=== PATIENT | female | born 1970 | race Caucasian/White ===

== ENCOUNTER → 2016-10-11 | Outpatient (CLI) | payer OTHER ==
--- NOTE | 2016-10-11 11:29 | KCIC ---
PROCEDURE MR of the left wrist HISTORY Left wrist pain after injury on October 01. Swelling. COMPARISON None FINDINGS Transverse fracture of the distal radius, along the growth plate scar. No gross displacement. Acute bone marrow contusion at the distal radius. No additional acute fractures are seen. Mild signal heterogeneity at the radial attachment of the triangular fibrocartilage, but the thin-section coronal slices demonstrate no evidence of an actual tear or rupture. Mild extensor carpi ulnaris tendinosis. No rupture. Mild adjacent fluid. Mild tendon sheath fluid identified at the 2nd, 3rd and 4th extensor compartments. Minimal fluid at the 5th extensor compartment. No evidence of scapholunate or lunotriquetral ligament tear. There is soft tissue edema/hemorrhage surrounding the wrist. This is greatest at the radial aspect. Small benign appearing lesion within the capitate bone. No aggressive bone destruction. Small distal radioulnar joint effusion. IMPRESSION 1. Nondisplaced transverse fracture across the distal radius. 2. Mild extensor carpi ulnaris tendinosis. 3. Mild fluid or tenosynovitis of multiple other extensor compartments. Electronically signed by: Yemi Chadwick MD (Oct 11, 2016 11:28:48)
== END | disposition home or self-care (01) ==
LOC: KCIC MRI 08:36
PROVIDERS: ATTEND Nurse Practitioner Family
DX: S52.592A Other fractures of lower end of left radius, initial encounter for closed fracture (principal); M65.832 Other synovitis and tenosynovitis, left forearm; X58.XXXA Exposure to other specified factors, initial encounter; Y93.89 Activity, other specified; Y92.89 Other specified places as the place of occurrence of the external cause; Y99.8 Other external cause status
CPT/HCPCS: 73221

== ENCOUNTER → 2017-11-29 | Outpatient (CLI) | payer OTHER | END | disposition home or self-care (01) | LOC: KCIC 14:07 | DX: R06.2 Wheezing (principal); Z12.31 Encounter for screening mammogram for malignant neoplasm of breast (principal) | CPT/HCPCS: 71046; 77067 ==

== ENCOUNTER → 2019-10-01 | Outpatient (CLI) | payer OTHER ==
--- NOTE | 2019-10-01 13:59 | KCIC ---
INDICATION: Osteoporosis screening. Postmenopausal evaluation with history of steroid medication use COMPARISON: None. TECHNIQUE: Bone densitometry was performed through the lumbar spine and left proximal femur. FINDINGS: Lumbar Spine: L1-4 BMD: 0.96 T-Score: -0.8 Femoral Neck: BMD: 0.79 T-Score: -1.2 IMPRESSION: 1. Lumbar spine falls within the lower limits of normal range. 2. Femoral neck falls within the osteopenic range. Electronically signed by: Ricardo Anders MD (10/01/2019 1:56 PM) [facility]
--- NOTE | 2019-10-01 14:44 | KCIC ---
BILATERAL SCREENING MAMMOGRAM History: Routine screening. Comparison: Bilateral mammogram 11/29/2017. Technique: Routine bilateral digital mammogram views were obtained. Findings: Breast Tissue Density A : The breasts are almost entirely fatty. There are no dominant masses, suspicious microcalcifications, or architectural distortion. IMPRESSION: No mammographic evidence of malignancy. Recommend routine screening. BI-RADS category 1: Negative. The images were reviewed with computer aided detection. Patient information is entered into the reminder system with a target due date for the next screening mammogram. Mammography is the most sensitive method for finding small breast cancers, but it does not detect them all and is not a substitute for careful clinical examination. A negative mammogram does not negate a clinically suspicious finding and should not result in delay in biopsying a clinically suspicious abnormality. "Our facility is accredited by the [employer] Mammography Program." Electronically signed by: Torsten Groves MD (10/01/2019 2:42 PM) [facility]
== END | disposition home or self-care (01) ==
LOC: KCIC DEXA 08:32
PROVIDERS: ATTEND Nurse Practitioner Family
DX: Z12.31 Encounter for screening mammogram for malignant neoplasm of breast (principal); Z13.820 Encounter for screening for osteoporosis; N64.89 Other specified disorders of breast; M85.88 Other specified disorders of bone density and structure, other site
CPT/HCPCS: 77067; 77080

== ENCOUNTER → 2020-06-29 | Outpatient (CLI) | payer OTHER ==
--- NOTE | 2020-06-29 12:05 | KCIC ---
MRI Lumbar Spine without contrast History: Low back pain, bilateral pain and numbness in extremities Technique: Multiplanar, multi sequential noncontrast MR imaging was performed of the lumbar spine. Comparison: None Findings: Lumbar vertebral body stature and AP alignment are maintained. There is mild L4-5 degenerative disc disease, very mild disc desiccation L3-4. There is minimal degenerative change associated with osteophytes anteriorly at L1-L2 through L3-4. Conus terminates at L1-L2. There is trace superior right L5 endplate edema likely reactive/degenerative in etiology. Appearance of some amorphous increased STIR signal of the visualized sacrum is favored to be artifactual given linear margin and not well-visualized on the T1 sequence. L1-L2: This level was not included on the axial images. Neural foramina and spinal canal are adequate. L2-L3: Spinal canal and neural foramina are adequate. There is minimal buckling of the ligamentum flavum and facet degenerative change. L3-L4: There is a negligible disc osteophyte complex. There is mild buckling of the ligamentum flavum. Spinal canal and neural foramina are adequate. L4-L5: There is posterior central protrusion about 1 to 2 mm AP. There is mild buckling of the ligamentum flavum and facet degenerative change. There is mild narrowing of the far lateral recesses bilaterally. There is mild narrowing of the inferior right neural foramen by disc osteophyte complex, left neural foramen adequate. L5-S1: There is minimal disc osteophyte complex. There is mild prominence of epidural fat in the lateral recesses bilaterally, preserved central subarachnoid space. There is mild facet degenerative change greater on the right. Neural foramina are overall adequate. Impression: 1. There is mild narrowing of the far lateral recesses bilaterally at L4-5, no significant lumbar spinal stenosis. There is mild L4-5 degenerative disc disease. There is mild narrowing of the right L4-5 neural foramen. Electronically signed by: Amrit Jane MD (06/29/2020 12:02 PM) [id number]
== END ==
LOC: KCIC MRI 10:21
PROVIDERS: ATTEND Family Medicine
DX: M51.16 Intervertebral disc disorders with radiculopathy, lumbar region (principal); M48.061 Spinal stenosis, lumbar region without neurogenic claudication; M25.78 Osteophyte, vertebrae
CPT/HCPCS: 72148

== ENCOUNTER → 2020-07-10 | Outpatient (CLI) | payer OTHER ==
[~2020-07-10] MED LIST: AMLO5TAB10 PO; CYCL5TAB PO; DIAZ2TAB PO; DULO60CA6 PO; GABA300C18 PO; MONT10TA49 PO; OMEP20CA16 PO; OXYC1TAB15 PO; TOPI100T8 PO; VALS80TA3 PO
== END | disposition home or self-care (01) ==
LOC: LAB 14:02
PROVIDERS: ATTEND Surgery
DX: Z01.812 Encounter for preprocedural laboratory examination (principal); Z20.828 Contact with and (suspected) exposure to other viral communicable diseases; K64.8 Other hemorrhoids; L73.2 Hidradenitis suppurativa
CPT/HCPCS: U0003-CS

== ENCOUNTER 2020-07-15 10:06 | Day surgery (SDC) | payer OTHER ==
[~2020-07-15] VITALS: Ht 157.5 cm; Wt 81.0 kg
[~2020-07-15 10:06] MED LIST changes: +ACETAMINOPHEN 500 MG TABLET PO PRN; +BUPIVACAINE MPF 0.5% 30 ML VIAL. ONE; +BUPIVACAINE-EPI 0.5%-1:200000 MPF 30 ML VIAL. INJ ONE; +DEXAMETHASONE SOD PHOS 4 MG/ML VIAL ONE; +EPINEPHrine VIAL 30 MG/30 ML VIAL ONE; +IV RINGERS,LACTATED 1000ML 1,000 ML IV SCH; +LIDOCAINE 2% PF 5 ML VIAL. ONE; +MIDAZOLAM HCL/PF 2 MG/2 ML VIAL. ONE; +ONDANSETRON PF 4 MG/2 ML VIAL. IV PRN; +ONDANSETRON PF 4 MG/2 ML VIAL. ONE; -OXYC1TAB15 PO; +PROCHLORPERAZINE 10 MG/2 ML VIAL. IV PRN; +PROPOFOL 10 MG/ML (20ML) VIAL. IV ONE; +fentaNYL PF VIAL 100 MCG/2 ML VIAL IV PRN; +fentaNYL PF VIAL 100 MCG/2 ML VIAL ONE
[2020-07-15] MEDS ORDERED: SCOPOLAMINE 1.5MG PATCH. TD SCH (11:00)
[2020-07-15] MEDS ORDERED: 0.9 % SODIUM CHLORIDE 20 ML VIAL. IJ ONE (11:23)
[2020-07-15] MEDS ORDERED: NEOMY/BACITR/POLYMYXIN OINT PACKET. TP ONE ×3 (11:26)
--- NOTE | 2020-07-15 12:12 | PDOC4 ---
Operative Note Operative Note Date: 2019 at 1210 Preoperative diagnosis: Internal/external hemorrhoids Postoperative diagnosis: Same Procedure: Hemorrhoidectomy Surgeon: Dhaval Specimen: Hemorrhoids Dictation: Patient is a 49-year-old female who has complaints of a painful hemorrhoid she also has history of hidradenitis with some perirectal i nflammation. Procedure of hemorrhoidectomy was explained to the patient detail risk-benefit were also discussed including bleeding infection alternatives this procedure also discussed with patient who seemed to understand and gave both verbal and written consent had procedure performed. Patient was taken to the operating room placed the supine position general anesthesia was initiated once patient was sleeping intubated she is placed in high lithotomy positioning and her peritoneum was prepped and draped usual sterile fashion using Betadine scrub and solution. An area around the hemorrhoid on the left side was injected with quarter percent Marcaine with epinephrine the hemorrhoid was grasped with Allis clamp and was excised using the harmonic scalpel there was some area internally and externally at the veronica-rectum he had previously had infection with hidradenitis with scar tissue this was also excised with a hemorrhoid. Wound was dressed with antibiotic ointment ABD and mesh shorts. Patient was placed ba ck in supine positioning patient was awakened and extubated in the operating room taken to recovery in stable condition all sponge instrument needle counts listed as correct estimated blood loss 5 mL SHANNAN ANGUIANO MD Jul 15, 2020 12:12
--- NOTE | 2020-07-15 12:14 | DISCH ---
DISCHARGE INSTRUCTIONS Condition on Discharge Condition on Discharge: Stable Activity After Discharge Activity Instructions for Disc: Avoid exertion Other activity instructions: No strenuous activity for 2 weeks Diet after Discharge Diet after Discharge: Regular Wound Incision Care Other wound/incision instructi: May shower in 24 hours Contacting the after DC Call your doctor for: If your condition worsens Follow-Up Follow up with: Dr. Anguiano in 2 weeks SHANNAN ANGUIANO MD Jul 15, 2020 12:14
[2020-07-15] MEDS ORDERED: OXYC1TAB15 PO (12:29)
[2020-07-15] MEDS ORDERED: fentaNYL PF VIAL 100 MCG/2 ML VIAL ONE (12:30)
[2020-07-15] MEDS ORDERED: oxyCODONE/APAP 5/325 1 TAB TABLET ONE (12:47)
[2020-07-15 13:00] VITALS: BP 161/92
[2020-07-15] MEDS ORDERED: oxyCODONE/APAP 5/325 1 TAB TABLET PO ONE (13:00)
--- NOTE | 2020-07-17 16:06 | PATHOLOGY ---
[facility] Accession Number: [id number] . 01 Material submitted: . hemorrhoids - HEMORRHOIDS AND BRITNI-RECTAL TISSUE . 01 Clinical history: . HEMORRHOIDS WITH COMPLICATION . 02 Diagnosis: Segments of anal skin and anorectal mucosa, excision of hemorrhoids: - INVASIVE SQUAMOUS CELL CARCINOMA, MODERATELY DIFFERENTIATED. SEE COMMENT. - Focal lymphovascular tumor invasion identified. (JPM:mateo/shantel; 07/16/2020) QMS 07/17/2020 1203 Local . 02 Comment: Sections of the hemorrhoid excision reveal segments of anal skin and anorectal mucosa. The latter shows the presence of hemorrhoids. The segments of anal skin, however, reveal a malignant epithelial neoplasm. The neoplasm is composed of irregular nests of atypical squamous epithelial cells which infiltrate a reactive fibrotic stroma. The tumor shows evidence of keratinization with focal presence of keratin pearls. The malignant cells show moderate nuclear pleomorphism. Mitotic figures are readily demonstrated. There is focal lymphovascular tumor invasion. The tumor does appear to be present at the deep coagulated margin. Immunoperoxidase stains are obtained on block A1 and yield the following results: . P16: Tumor cells positive. P63: Tumor cells positive. . The findings are supportive of the diagnosis of an invasive moderately differentiated squamous cell carcinoma. . The case is also examined by Dr. Simpson, who concurs with the diagnosis. The results are reported to Dr. Puentes on 07/16/2020 at 2:10 PM. . (MADDIM:mateo/shantel 07/16/2020) . Special stains performed: Immunoperoxidase stains for p16 and p63 on A1. . 02 Electronically signed: . Claudio Dietz MD, Pathologist NPI- [id number] . 01 Gross description: . The specimen is received in formalin, labeled "Beer, Constanza", "hemorrhoids and perirectal tissue". Received are 3 segments of wrinkled, pale pink-harley skin and soft tissue, ranging in size from 0.8 cm to 1.5 cm. Sectioning reveals a glistening, pale harley-pink cut surface with no solid masses or nodules. A patient access representative section from each segment is submitted in cassette A1.(SNA; 07/15/2020) . After initial microscopic examination the remainder of the specimen is submitted in A2-A3. (SDY; 07/16/2020) DAVIDSON/FARRUKH 07/16/2020 1252 Local . 02 Pathologist provided ICD-10: C44.520 . 02 CPT . 454844, [id number], [id number] Specimen Comment: A courtesy copy of this report has been sent to [phone], [phone] Specimen Comment: 2230 Specimen Comment: Report sent to / DR MEDRANO Performed at: 01 [facility] [address], [place] [id number] MD Guillaume Littlejohn MD Phone: [phone] Performed at: 02 [facility] [address] [place], [place] [id number] MD Claudio Dietz MD Phone: [phone]
== END 2020-07-15 13:16 | disposition home or self-care (01) ==
LOC: SURG 10:06
PROVIDERS: ATTEND Surgery
DX: K64.4 Residual hemorrhoidal skin tags (principal); K64.8 Other hemorrhoids; Z88.8 Allergy status to other drugs, medicaments and biological substances; Z79.899 Other long term (current) drug therapy
CPT/HCPCS: 46255; A7015; J0690; J1100; J2250; J2405; J2704; J3010; J0171; J3490; A4461